=== PATIENT | female | born 1950 | race Caucasian/White ===

== ENCOUNTER → 2016-06-27 | Outpatient (CLI) | payer BC | LOC: FIMAGING 10:01 | DX: Z12.31 Encounter for screening mammogram for malignant neoplasm of breast (principal); Z80.3 Family history of malignant neoplasm of breast | CPT/HCPCS: G0202 ==

== ENCOUNTER → 2017-06-29 | Outpatient (CLI) | payer BC | LOC: FIMAGING 10:27 | PROVIDERS: ATTEND Surgery | DX: Z12.31 Encounter for screening mammogram for malignant neoplasm of breast (principal); Z80.3 Family history of malignant neoplasm of breast ==

== ENCOUNTER 2017-12-25 21:08 | Emergency (ER) | payer BC ==
[2017-12-25] MEDS ORDERED: HYDROmorphONE/DILAUDID 2 MG/ML INJ IVP ONE (21:55)
[2017-12-25] MEDS ORDERED: NS 1,000 ML IV ONE ×2 (21:55→22:48)
[2017-12-25] MEDS ORDERED: ONDANSETRON 4 MG/2 ML VIAL IVP ONE ×2 (21:55→23:21)
--- NOTE | 2017-12-25 21:57 | EDPHY ---
H & P Stated Complaint: LLQ, N/V since 1930 Source: Patient, Family Exam Limitations: No limitations - Personal History Current Tetanus/Diphtheria Vaccine: Yes Tetanus Vaccine Date: <10 YRS - Medical/Surgical History Hx Asthma: No Hx Chronic Respiratory Disease: No Hx Diabetes: No Hx Cardiac Disease: No Hx Renal Disease: No Hx Cirrhosis: No Hx Alcoholism: No Hx HIV/AIDS: No Hx Splenectomy or Spleen Trauma: No Other PMH: R hip replacement - Family History Significant Family History: No pertinent family hx - Social History Smoking Status: Never smoked Alcohol Use: Sober Drug Use: None Time Seen by Provider: 12/25/17 21:50 HPI/ROS: CHIEF COMPLAINT: left lower quadrant pain HISTORY OF PRESENT ILLNESS: Patient is a healthy 67-year-old female who comes to the emergency department complaining of pain in her left lower quadrant that radiates to her left flank and lower back. She states that it began around 7: 00 p.m. Spontaneously. She has been nauseous and vomiting. No diarrhea. No fever. She has never had pain like this before. No history of abdominal surgery. No urinary symptoms. No vaginal bleeding or discharge her symptoms. No chest pain or shortness of breath. Severity: Severe and constant. Her pain does not wax and wane Modifying factors: Deep palpation REVIEW OF SYSTEMS: Constitutional: denies: chills, fever, recent illness, recent injury EENTM: denies: blurred vision, double vision, nose congestion Respiratory: denies: cough, shortness of breath Cardiac: denies: chest pain, irregular heart rate, lightheadedness, palpitations Gastrointestinal/Abdominal: See HPI denies: diarrhea, blood streaked stools Genitourinary: denies: dysuria, frequency, hematuria, pain Musculoskeletal: denies: joint pain, muscle pain Skin: denies: lesions, rash, jaundice, bruising Neurological: denies: headache, numbness, paresthesia, tingling, dizziness, weakness Hematologic/Lymphatic: denies: blood clots, easy bleeding, easy bruising Immunologic/allergic: denies: HIV/AIDS, transplant EXAM: GENERAL: Uncomfortable, moderate distress. HEAD: Atraumatic, normocephalic. EYES: Pupils equal round and reactive to light, extraocular movements intact, sclera anicteric, conjunctiva are normal. ENT: TMs normal, nares patent, oropharynx clear without exudates. Moist mucous membranes. NECK: Normal range of motion, supple without lymphadenopathy or JVD. LUNGS: Breath sounds clear to auscultation bilaterally and equal. No wheezes rales or rhonchi. HEART: Regular rate and rhythm without murmurs, rubs or gallops. ABDOMEN: Mild left lower quadrant tenderness, normoactive bowel sounds. No guarding, no rebound. No masses appreciated. BACK: No CVA tenderness, no spinal tenderness, step-offs or deformities EXTREMITIES: Normal range of motion, no pitting or edema. No clubbing or cyanosis. NEUROLOGICAL: Cranial nerves II through XII grossly intact. Normal speech, normal gait. 5/5 strength, normal movement in all extremities, normal sensation , normal reflexes PSYCH: Normal mood, normal affect. SKIN: Warm, dry, normal turgor, no visible rashes or lesions. (Ariel Hudson) Constitutional: Initial Vital Signs Temperature (C) 36.9 C 12/25/17 21:09 Heart Rate 97 12/25/17 21:09 Respiratory Rate 20 12/25/17 21:09 Blood Pressure 155/113 H 12/25/17 21:09 O2 Sat (%) 89 L 12/25/17 21:09 O2 Delivery Mode Room Air O2 (L/minute) 2 Allergies/Adverse Reactions: No Allergies [NKDA] Allergy (Verified 12/25/17 21:11) Home Medications: Medication Instructions Recorded Calcium Citrate W/Vit D [Citracal 2 tab PO DAILY 10/18/11 + D (OTC)] Ondansetron Odt [Zofran Odt 4 mg 4 mg PO Q4 PRN #10 tab 12/26/17 (*)] Tamsulosin HCl [Flomax 0.4 MG (*)] 0.4 mg PO DAILY #10 cap 12/26/17 Medical Decision Making - Diagnostics Imaging Results: Imaging Impressions Abdomen CT 12/25/17 21:55 Impression: 1. 4 mm distal left ureteral calculus results in moderate hydronephrosis and perinephric edema. 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 2. Left nephrolithiasis. 3. Pelvic varices. ED Course/Re-evaluation: The patient was monitored in the emergency room for several hours. She completed her CT scan which did demonstrate left-sided ureterolithiasis. I feel this is likely the cause of her symptoms and I have explained this to her. UA was obtained and showed no signs of infection. She received additional antiemetics and pain medications and was observed for several hours. She eventually felt well enough to be discharged home. We discussed diagnosis and treatment of kidney stones and I have given her usual follow-up information including urology referral. (Estephania Kim) 11:10 p.m. I discussed the lab work thus far. The patient just return from CT scan. She still feels slightly nauseous but declines more medication. We also pending urinalysis. Her lab work thus far is reassuring. Care transferred to Dr. Kim at shift change. (Ariel Hudson) Differential Diagnosis: Partial list of the Differential diagnosis considered include but were not limited to; kidney stone, urinary tract infection, diverticulitis and although unlikely based on the history and physical exam, I also considered ovarian cyst , torsion, obstruction, aneurysm. (Ariel Hudson) - Data Points Laboratory Results: Laboratory Results 12/25/17 21:55 12/25/17 21:55 Medications Given: Discontinued Medications Hydromorphone HCl (Dilaudid) 0.5 mg IVP EDNOW ONE Stop: 12/25/17 21:56 Last Admin: 12/25/17 22:03 Dose: 0.5 mg Sodium Chloride (Ns) 1,000 mls @ 0 mls/hr IV EDNOW ONE; Wide Open PRN Reason: Protocol Stop: 12/25/17 21:56 Last Admin: 12/25/17 22:04 Dose: 1,000 mls Sodium Chloride (Ns) 1,000 mls @ 0 mls/hr IV EDNOW ONE; Wide Open PRN Reason: Protocol Stop: 12/25/17 22:49 Last Admin: 12/25/17 22:50 Dose: 1,000 mls Ketorolac Tromethamine (Toradol) 15 mg IVP EDNOW ONE Stop: 12/25/17 23:18 Last Admin: 12/25/17 23:28 Dose: 15 mg Ketorolac Tromethamine (Toradol) 15 mg IVP EDNOW ONE Stop: 12/26/17 03:50 Last Admin: 12/26/17 03:53 Dose: 15 mg Ondansetron HCl (Zofran) 4 mg IVP EDNOW ONE Stop: 12/25/17 21:56 Last Admin: 12/25/17 22:04 Dose: 4 mg Ondansetron HCl (Zofran) 4 mg IVP EDNOW ONE Stop: 12/25/17 23:22 Last Admin: 12/25/17 23:30 Dose: 4 mg Ondansetron HCl (Zofran Odt 4 Mg Prepack#2) 1 btl TAKEHOME EDNOW ONE Stop: 12/26/17 05:12 Last Admin: 12/26/17 05:27 Dose: 1 btl Oxycodone/Acetaminophen (Percocet 5/325mg Prepack#4) 1 btl TAKEHOME EDNOW ONE Stop: 12/26/17 05:11 Last Admin: 12/26/17 05:26 Dose: 1 btl Promethazine HCl (Phenergan) 12.5 mg IVP ONCE ONE Stop: 12/26/17 00:41 Last Admin: 12/26/17 00:42 Dose: 12.5 mg Departure - Departure Disposition: Home, Routine, Self-Care Clinical Impression: Renal colic on left side Condition: Good Instructions: Oxycodone/Acetaminophen (By mouth), Ondansetron (By mouth), Tamsulosin (By mouth), Renal Colic (ED) Additional Instructions: 1. Take Ibuprofen or Motrin 600 mg by mouth three times a day. 2. Percocet as needed for severe pain 3. Flomax as directed 4. Zofran as needed for nausea 5. Strain urine as directed 6. Return to the Emergency Department for intractable pain, fever or vomiting. 7. Followup with the urologist you have been referred to for unimproved symptoms. Referrals: Aga Gamboa MD [Medical Doctor] - As per Instructions Prescriptions: Ondansetron Odt [Zofran Odt 4 mg (*)] 4 mg PO Q4 PRN #10 tab PRN Reason: Nausea/Vomiting, Can'T Take Po Tamsulosin HCl [Flomax 0.4 MG (*)] 0.4 mg PO DAILY #10 cap
[2017-12-25] MEDS ORDERED: IOPAMIDOL (ISOVUE-300) 100 ML BTL ONE (22:11)
[2017-12-25 22:16] LABS: PLATELET COUNT 284 10^3/uL (150-400)
[2017-12-25] MEDS ORDERED: KETOROLAC 30 MG/1 ML SDV IVP ONE (23:17)
[2017-12-26] MEDS ORDERED: PROMETHAZINE HCL 25 MG/ML INJ ONE (00:39)
[2017-12-26] MEDS ORDERED: PROMETHAZINE HCL 25 MG/ML INJ IVP ONE (00:40)
[2017-12-26] MEDS ORDERED: KETOROLAC 15 MG/1 ML SDV IVP ONE (03:49)
[2017-12-26 04:59] VITALS: BP 121/69
[2017-12-26] MEDS ORDERED: OXYCODONE/APAP 5/325MG PREPACK#4 BTL TAKEHOME ONE (05:10)
[2017-12-26] MEDS ORDERED: ONDANSETRON 4MG PREPACK#2 BTL TAKEHOME ONE (05:11)
== END 2017-12-26 05:50 | disposition home or self-care (01) ==
DX: N23 Unspecified renal colic (principal); E86.9 Volume depletion, unspecified
CPT/HCPCS: 96374; J1170; J1885; J2405; J2550; Q9967

== ENCOUNTER → 2018-07-02 | Outpatient (CLI) | payer BC | LOC: FIMAGING 09:21 | PROVIDERS: ATTEND Internal Medicine | DX: N63.21 Unspecified lump in the left breast, upper outer quadrant (principal) ==